=== PATIENT | female | born 1995 | race Caucasian/White ===

== ENCOUNTER 2023-06-24 09:08 | Emergency (ER) | payer MEDICAID, OTHER ==
[~2023-06-24] VITALS: Ht 162 cm; Wt 73.0 kg
[2023-06-24 09:22] VITALS: BP 139/79
[2023-06-24] MEDS ORDERED: KETOROLAC INJ 15 MG/ML VIAL IVP STA (09:24)
[2023-06-24 09:26] LABS: BILIRUBIN,URINE NEGATIVE (NEGATIVE); CLARITY,URINE CLEAR; COLOR,URINE YELLOW; GLUCOSE, URINE (UA) NEGATIVE (NEGATIVE); KETONES,URINE NEGATIVE (NEGATIVE); LEUKOCYTE ESTERASE ,URINE NEGATIVE (NEGATIVE); NITRITE,URINE NEGATIVE (NEGATIVE); PROTEIN,URINE NEGATIVE (NEGATIVE)
[2023-06-24] MEDS ORDERED: ONDANSETRON INJECTION 4 MG/2 ML (SDV) IVP STA (09:30)
[2023-06-24] MEDS ORDERED: NS IV 1000 ML 1,000 ML IV STA (09:30)
--- NOTE | 2023-06-24 09:30 | ED GI ---
General Chief Complaint: Abdominal/GI Problems Stated Complaint: ROQUE FLANK PAIN; NAUSEA; ABD PAIN Source of Information: Patient History of Present Illness Date Seen by Provider: Jun 24, 2023 Time Seen by Provider: 09:11 Initial Comments 27-year-old female presenting with complaints of bilateral flank pain, low back pain, pelvic pain with nausea and diarrhea. She states this has been going on for several weeks but felt like it was getting worse. She had been seeing another facility a few weeks ago and told that she had a kidney stone on the left side. She stated that the pain had gone away but now she is having this other pain and was not sure if it was from the kidney stone or what was causing it. She denies having any establish care with anyone. She states that she recently moved to [place]. She denies any allergies to medications. She does not have any prescription medicines that she is supposed to be taking. She does have Nexplanon in her arm that was implanted a year ago for control. She denies having pain with urination or vaginal discharge. She has been taking ibuprofen with minimal to no improvement. Her last menstrual cycle was June 11. Timing/Duration: Getting Worse (Over the last several weeks) Severity/Quality: Severe (8 out of 10), Sharp Location: Flank (Bilateral), Suprapubic, Other (Low back) Activities at Onset: None Modifying Factors: Worsens With Movement, Worsens With Palpation Associated Symptoms: Back Pain (Bilateral low back pain); No Chest Pain, No Diaphoresis, No Fever/Chills, No Fatigue, No Headache, No Heartburn; Nausea/Vomiting (Nausea but no vomiting); No Rash, No Shortness of Air, No Swelling/Mass in Abdomen, No Syncope, No Weakness Allergies and Home Medications Allergies Coded Allergies: No Known Drug Allergies (Unverified , 06/24/23) Patient Home Medication List Home Medication List Reviewed: Yes Hydrocodone/Acetaminophen (Hydrocodone-Acetamin 5-325 mg) 5 Mg-325 Mg Tablet, 1 TAB PO Q4H PRN for PAIN-SEVERE (8-10) Prescribed by: CHANEL LANTIGUA on 06/24/23 1053 Ondansetron (Ondansetron Odt) 4 Mg Tab.rapdis, 4 MG PO Q6H PRN for NAUSEA/VOMITING Prescribed by: CHANEL LANTIGUA on 06/24/23 1058 Review of Systems Review of Systems Constitutional: No chills, No fever EENTM: No Symptoms Reported Respiratory: No Symptoms Reported Cardiovascular: No Symptoms Reported Gastrointestinal: See HPI, Diarrhea, Nausea; Denies Vomiting Genitourinary: Flank Pain (Bilateral) Musculoskeletal: see HPI Skin: No rash Psychiatric/Neurological: Denies Headache Endocrine: No Symptoms Reported Past Qlmmgls-Ucethl-Txbjwp Hx Patient Social History Tobacco Use?: Yes Tobacco type used: Cigarettes Substance use?: No Alcohol Use?: No Past Medical History Surgery/Hospitalization HX: Kidney stones Physical Exam Vital Signs Vital Signs - First Documented 06/24/23 09:22 Temp 36.7 Pulse 76 Resp 16 B/P (MAP) 139/79 (99) Pulse Ox 99 O2 Delivery Room Air Capillary Refill : Height/Weight/BMI Height: '" Weight: lbs. oz. kg; BMI Method: General Appearance: WD/WN, no apparent distress HEENT: PERRL/EOMI Respiratory: chest non-tender, lungs clear, normal breath sounds, no respiratory distress, no accessory muscle use Cardiovascular: normal peripheral pulses, regular rate, rhythm Gastrointestinal: normal bowel sounds, soft, no pulsatile mass; No distended, No guarding, No rebound; tenderness (Low pelvic pain with palpation) Rectal: deferred Extremities: normal range of motion, non-tender, normal capillary refill Back: no CVA tenderness, no vertebral tenderness Neurologic/Psychiatric: alert, oriented x 3 Skin: normal color, warm/dry Progress/Results/Core Measures Results/Orders Lab Results Laboratory Tests Test 06/24/23 09:12 06/24/23 09:30 06/24/23 09:45 Range/Units Urine Color YELLOW Urine Clarity CLEAR Urine pH 6.0 5-9 Urine Specific Kevil 1.010 L 1.016-1.022 Urine Protein NEGATIVE NEGATIVE Urine Glucose (UA) NEGATIVE NEGATIVE Urine Ketones NEGATIVE NEGATIVE Urine Nitrite NEGATIVE NEGATIVE Urine Bilirubin NEGATIVE NEGATIVE Urine Urobilinogen 0.2 < = 1.0 MG/DL Urine Leukocyte Esterase NEGATIVE NEGATIVE Urine RBC (Auto) NEGATIVE NEGATIVE Urine RBC NONE /HPF Urine WBC RARE /HPF Urine Squamous Epithelial Cells 10-25 H /HPF Urine Crystals NONE /LPF Urine Bacteria FEW H /HPF Urine Casts NONE /LPF Urine Mucus SMALL H /LPF Urine Culture Indicated NO White Blood Count 5.8 4.3-11.0 10^3/uL Red Blood Count 4.46 3.80-5.11 10^6/uL Hemoglobin 13.9 11.5-16.0 g/dL Hematocrit 43 35-52 % Mean Corpuscular Volume 96 80-99 fL Mean Corpuscular Hemoglobin 31 25-34 pg Mean Corpuscular Hemoglobin Concent 33 32-36 g/dL Red Cell Distribution Width 12.4 10.0-14.5 % Platelet Count 249 130-400 10^3/uL Mean Platelet Volume 10.1 9.0-12.2 fL Immature Granulocyte % (Auto) 0 % Neutrophils (%) (Auto) 53 42-75 % Lymphocytes (%) (Auto) 39 12-44 % Monocytes (%) (Auto) 6 0-12 % Eosinophils (%) (Auto) 1 0-10 % Basophils (%) (Auto) 1 0-10 % Neutrophils # (Auto) 3.0 1.8-7.8 10^3/uL Lymphocytes # (Auto) 2.3 1.0-4.0 10^3/uL Monocytes # (Auto) 0.4 0.0-1.0 10^3/uL Eosinophils # (Auto) 0.1 0.0-0.3 10^3/uL Basophils # (Auto) 0.0 0.0-0.1 10^3/uL Immature Granulocyte # (Auto) 0.0 0.0-0.1 10^3/uL Sodium Level 137 135-145 MMOL/L Potassium Level 3.6 3.6-5.0 MMOL/L Chloride Level 104 98-107 MMOL/L Carbon Dioxide Level 24 21-32 MMOL/L Anion Gap 9 5-14 MMOL/L Blood Urea Nitrogen 7 7-18 MG/DL Creatinine 0.75 0.60-1.30 MG/DL Estimat Glomerular Filtration Rate 113 BUN/Creatinine Ratio 9 Glucose Level 98 70-105 MG/DL Calcium Level 8.7 8.5-10.1 MG/DL Corrected Calcium 8.6 8.5-10.1 MG/DL Total Bilirubin 0.4 0.1-1.0 MG/DL Aspartate Amino Transf (AST/SGOT) 12 5-34 U/L Alanine Aminotransferase (ALT/SGPT) 10 0-55 U/L Alkaline Phosphatase 84 40-136 U/L Total Protein 6.7 6.4-8.2 GM/DL Albumin 4.1 3.2-4.5 GM/DL Lipase 24 8-78 U/L My Orders Orders - CHANEL LANTIGUA MD Ua Culture If Indicated (06/24/23 09:16) Urine Bedside (06/24/23 09:16) Comprehensive Metabolic Panel (06/24/23:23) Lipase (06/24/23:23) Ed Iv/Invasive Line Start (06/24/23:23) Cbc And Automated Diff (06/24/23:23) Ct Abdomen/Pelvis Wo (06/24/23:23) Ketorolac Injection (Ketorolac Injection (06/24/23 09:24) Ns Iv 1000 Ml (Ns Iv 1000 Ml) (06/24/23:30) Ondansetron Injection (Ondansetron Inj (06/24/23:30) Vital Signs/I&O 06/24/23 09:22 Temp 36.7 Pulse 76 Resp 16 B/P (MAP) 139/79 (99) Pulse Ox 99 O2 Delivery Room Air Progress Progress Note #1: Progress Note Differential diagnosis includes renal colic, kidney stone, diverticulitis, colitis, pyelonephritis, cystitis. Obtain urine test bedside test as well as urinalysis. Establish peripheral IV access and send labs for complete blood count, comprehensive metabolic profile, lipase. Administer normal saline 1 L IV fluid bolus for hydration, Toradol 15 mg IV for pain, Zofran 4 mg IV for nausea. CT scan of the abdomen pelvis without IV contrast to look for kidney stone or acute pathology to be causing her pain for the last several weeks. Progress Note #2: Time: 09:51 Progress Note Urinalysis did not show Nitrites/LE or WBC or Bacteria to indicate a UTI. She also was not having blood in her urine to indicate a kidney stone. Bedside test was negative. Complete blood count was not showing elevated WBC count for infection as it is only 5.8, not anemic with Hgb 13.9. Awaiting comprehensive metabolic profile and CT scan Progress Note #3: Time: 10:19 Progress Note Comprehensive metabolic profile did not show any acute electrolyte abnormalities. The CT scan of the abdomen pelvis without IV contrast was read out by the radiologist as showing some kidney stones in the left kidney but nothing in the ureter. She did have an 8 mm mass in the left adnexa concerning for possible teratoma. Recommended ultrasound. Discussed findings with the patient. Encourage fluids and hydration in terms of trying to prevent further kidney stones from forming. Ordered outpatient ultrasound for the pelvis to evaluate the possible teratoma. Given information for gynecology for follow-up with Dr. CARRASQUILLO or Dr. Steinberg. I did leave a voice mail for Dr. Carrasquillo but he was not available to take my call to see if he had any further recommendations prior to getting ultrasound. Prescribed hydrocodone/acetaminophen 5/325 1 every 4 hours as needed severe pain. Counseled that this was a narcotic and not to take it while driving. It can cause constipation and take a laxative she was having issues with that. Also recommended taking oosl-cus-uxyhgnd naproxen or Aleve up to 2 pills every 12 hours. From a nausea standpoint she also was prescribed Zofran ODT 4 mg every 6 hours prn Nausea and vomiting. Given an outpatient order for ultrasound to be done at 8 AM tomorrow morning in [place]. Also given information for the [facility] in [place] [facility] Diagonstic Imaging: CT Plain Films/CT/US/NM/MRI: abdomen, pelvis Comments [facility]. [place], [place] NAME: CHERIJANI Ori [facility] REC#: [id number] PT STATUS: REG ER : 1995 PHYSICIAN: CHANEL LANTIGUA MD ADMIT DATE: 06/24/23/ER FS Draft Date of Exam:06/24/23 CT ABDOMEN/PELVIS WO EXAMINATION: CT abdomen and pelvis without contrast. TECHNIQUE: Multiple contiguous axial images were obtained through the abdomen and pelvis without the use of intravenous contrast. All CT scans use one or more of the following dose optimizing techniques: automated exposure control, MA and/or KvP adjustment based on patient size and exam type or iterative reconstruction. HISTORY: Bilateral flank pain and pelvic pain COMPARISON: None available. FINDINGS: Limited views of the lower thorax are unremarkable. The liver is normal without focal lesion. There is no biliary ductal dilation. Gallbladder is normal. Pancreas is normal. Spleen is normal. Adrenal glands are normal. There is a 3 mm stone in the left kidney. There is a 1 mm stone in the left kidney. No suspicious renal lesion. There are no ureteral stones. There is no hydronephrosis. Urinary bladder is normal. There is an 8 mm fat-containing focus centered in the left adnexa. There is a physiologic cyst in the right ovary. Bowel is normal in caliber without obstruction or inflammation. No free fluid or air. No abdominal or pelvic lymphadenopathy. Aorta is normal in caliber without aneurysm. There are no suspicious osseus lesions. IMPRESSION: 1. Nonobstructing left-sided renal stones. No ureteral stone. 2. 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 Pelvic sonogram recommended. Dictated on workstation # [id number] Dict: 06/24/23 1000 Trans: 06/24/23 1012 CVB [id number] Interpreted by: ELAINE GOMEZ MD Electronically signed by: Reviewed: Reviewed by Me Departure Impression Primary Impression: Adnexal mass Additional Impressions: Acute pelvic pain, female Kidney stone on left side Disposition: 01 HOME, SELF-CARE Condition: Improved Departure-Patient Inst. Decision time for Depature: 10:57 Referrals: ANTONIO CARRASQUILLO,LOCAL PHYSICIAN (PCP) Primary Care Physician EVELINE STEINBERG DO [facility] Patient Instructions: Kidney Stone, Adult ED, Pelvic Pain ED Add. Discharge Instructions: Your CT scan showed an 8 mm mass by the left ovary that could be a Teratoma. Go to [facility] in [place] to radiology registration by 8 am. They want you to have a full bladder so they can perform the ultrasound better. Follow up with Gynecology Dr. Carrasquillo or Dr. Steinberg after you have the ultrasound done. You could call today to see when they can get you in to the clinic. They work in [place]. You may also try to follow up with primary care through the [facility] in [place] [address] [place] [address] and phone number . If the ultrasound shows that this is a Teratoma then the [facility] [employer] [facility] would be the physician that you need to see for follow up as they usually would try to remove the tumor. For severe pain you may take the Hydrocodone/Acetaminophen 5/325 mg pills. These are narcotics so you do not want to drive while taking them and can cause constipation so you might need to take a laxative to prevent getting constipated. Over the counter for pain you may take naproxen (Aleve) 2 pills every 12 hours or 1 pill every 6 hours. All discharge instructions reviewed with patient and/or family. Voiced understanding. Scripts Ondansetron (Ondansetron Odt) 4 Mg Tab.rapdis 4 MG PO Q6H PRN for NAUSEA/VOMITING for 5 Days, #20 TAB 0 Refills Prov: CHANEL LANTIGUA MD 06/24/23 Hydrocodone/Acetaminophen (Hydrocodone-Acetamin 5-325 mg) 5 Mg-325 Mg Tablet 1 TAB PO Q4H PRN for PAIN-SEVERE (8-10) for 3 Days, #18 TAB 0 Refills Prov: CHANEL LANTIGUA MD 06/24/23 Work/School Note: Work Release Form Date Seen in the Emergency Department: Jun 24, 2023 Return to Work: Jul 01, 2023 Restrictions: No Restrictions CHANEL LANTIGUA MD Jun 24, 2023 09:30
[2023-06-24 09:35] LABS: BASOPHILS % (AUTO) 1 % (0-10); EOSINOPHILS # (AUTO) 0.1 10^3/uL (0.0-0.3); EOSINOPHILS % (AUTO) 1 % (0-10); HEMATOCRIT 43 % (35-52); HEMOGLOBIN 13.9 g/dL (11.5-16.0); LYMPHOCYTES # (AUTO) 2.3 10^3/uL (1.0-4.0); LYMPHOCYTES % (AUTO) 39 % (12-44); MEAN CORPUSCULAR HEMOGLOBIN 31 pg (25-34); MEAN CORPUSCULAR HGB CONC 33 g/dL (32-36); MEAN CORPUSCULAR VOLUME 96 fL (80-99); MEAN PLATELET VOLUME 10.1 fL (9.0-12.2); MONOCYTES # (AUTO) 0.4 10^3/uL (0.0-1.0); MONOCYTES % (AUTO) 6 % (0-12); NEUTROPHILS % (AUTO) 53 % (42-75); PLATELET COUNT 249 10^3/uL (130-400); WHITE BLOOD COUNT 5.8 10^3/uL (4.3-11.0)
[2023-06-24 09:45] LABS: BACTERIA,URINE FEW /HPF; WBC,URINE RARE /HPF
[2023-06-24 10:06] LABS: POTASSIUM 3.6 MMOL/L (3.6-5.0)
[2023-06-24 10:07] LABS: ALBUMIN 4.1 GM/DL (3.2-4.5); BILIRUBIN,TOTAL 0.4 MG/DL (0.1-1.0); CALCIUM 8.7 MG/DL (8.5-10.1); CREATININE SERUM 0.75 MG/DL (0.60-1.30); TOTAL PROTEIN 6.7 GM/DL (6.4-8.2)
--- NOTE | 2023-06-24 10:12 | Diagnostic Imaging Report ---
EXAMINATION: CT abdomen and pelvis without contrast. TECHNIQUE: Multiple contiguous axial images were obtained through the abdomen and pelvis without the use of intravenous contrast. All CT scans use one or more of the following dose optimizing techniques: automated exposure control, MA and/or KvP adjustment based on patient size and exam type or iterative reconstruction. HISTORY: Bilateral flank pain and pelvic pain COMPARISON: None available. FINDINGS: Limited views of the lower thorax are unremarkable. The liver is normal without focal lesion. There is no biliary ductal dilation. Gallbladder is normal. Pancreas is normal. Spleen is normal. Adrenal glands are normal. There is a 3 mm stone in the left kidney. There is a 1 mm stone in the left kidney. No suspicious renal lesion. There are no ureteral stones. There is no hydronephrosis. Urinary bladder is normal. There is an 8 mm fat-containing focus centered in the left adnexa. There is a physiologic cyst in the right ovary. Bowel is normal in caliber without obstruction or inflammation. No free fluid or air. No abdominal or pelvic lymphadenopathy. Aorta is normal in caliber without aneurysm. There are no suspicious osseus lesions. IMPRESSION: 1. Nonobstructing left-sided renal stones. No ureteral stone. 2. 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 Pelvic sonogram recommended. Dictated by: Dictated on workstation # [id number]
[2023-06-24] MEDS ORDERED: ACHD5005 PO (10:58)
[2023-06-24] MEDS ORDERED: ONDA4TAB11 PO (10:58)
== END 2023-06-24 11:26 | disposition home or self-care (01) ==
LOC: ER FS 09:10
DX: N83.8 Other noninflammatory disorders of ovary, fallopian tube and broad ligament (principal); N20.0 Calculus of kidney; R11.0 Nausea; F17.210 Nicotine dependence, cigarettes, uncomplicated
CPT/HCPCS: 36415; 74176; 80053; 81000; 83690; 84703; 85025

== ENCOUNTER → 2023-06-25 | Outpatient (CLI) | payer MEDICAID ==
[~2023-06-25] MED LIST: ACHD5005 PO; ONDA4TAB11 PO
--- NOTE | 2023-06-25 12:35 | Diagnostic Imaging Report ---
PROCEDURE: Pelvic comp/transvaginal sonogram. TECHNIQUE: Complete transabdominal and transvaginal pelvic ultrasound was performed. In addition, limited pelvic Doppler was performed. INDICATION: Left adnexal mass noted on recent CT. Patient also has acute left pelvic pain. COMPARISON: Correlation is made with CT study performed one day earlier. FINDINGS: Uterus is anteverted measuring 8.5 x 4.0 x 4.2 cm. Endometrium is 2 mm in thickness. No myometrial mass is identified. Right ovary measures 2.6 x 2.0 x 3.1 cm, and left ovary measures 2.7 x 2.6 x 2.2 cm. There are follicles involving bilateral ovaries. Both ovaries demonstrate blood flow. No adnexal mass is identified. There is no free pelvic fluid. No abnormality is identified to account for the fat-containing focus in the left adnexa on recent CT. IMPRESSION: Unremarkable transabdominal and transvaginal pelvic ultrasound with limited pelvic Doppler. Dictated by: Dictated on workstation # [id number]
== END ==
LOC: RAD 07:50
PROVIDERS: ATTEND Family Medicine
DX: N94.89 Other specified conditions associated with female genital organs and menstrual cycle (principal)
CPT/HCPCS: 76830; 76856

== ENCOUNTER → 2023-07-02 | Outpatient (CLI) | payer MEDICAID | LOC: RAD 09:45 | PROVIDERS: ATTEND Obstetrics & Gynecology | DX: D27.9 Benign neoplasm of unspecified ovary (principal); Z53.9 Procedure and treatment not carried out, unspecified reason ==